=== PATIENT | female | born 1950 | race Caucasian/White ===

== ENCOUNTER 2016-04-25 10:00 | Emergency (ER) | payer SELFPAY ==
[~2016-04-25] VITALS: Wt 68.0 kg
[2016-04-25] MEDS ORDERED: DOCU-144 PO (12:24)
[2016-04-25] MEDS ORDERED: SENN-53 PO (12:24)
--- NOTE | 2016-04-25 13:43 | ERD ---
ER Documentation Chief Complaint Date/Time DATE: 04/25/16 TIME: 13:41 Chief Complaint GEN ABDOMINAL PAIN FOR A FEW DAYS WITH NO NAUSEA NO VOMITING.CONSTIPATION HPI She is a 66-year-old female with diabetes and hypertension who presents with abdominal pain. She says that she usually has a bowel movement 3-4 times per day but over the past 3 days she has had no bowel movements. She said that she has abdominal pain which radiates to her back. She has had no recent changes in her diet and no new medicines. She has no fevers and no vomiting. Upon review of old medical records this is the patient's first visit to the emergency department. She says that she goes to a local clinic but does not know the name of her primary doctor. ROS All systems reviewed and are negative except as per history of present illness. Medications Home Meds Active Scripts Sennosides* (Senna Lax*) 8.6 Mg Tablet, 1 TAB PO DAILY for 30 Days, TAB Prov:LEONARD HIDALGO MD 04/25/16 Docusate Sodium* (Colace*) 100 Mg Capsule, 100 MG PO TID, #30 CAP Prov:LEONARD HIDALGO MD 04/25/16 Allergies Allergies: Coded Allergies: No Known Allergy (Unverified , 04/25/16) PMhx/Soc History of Surgery: No Hx Neurological Disorder: No Hx Respiratory Disorders: No Hx Cardiac Disorders: No Hx Psychiatric Problems: No Hx Miscellaneous Medical Probl: Yes (dm) Hx Alcohol Use: No Hx Substance Use: No Hx Tobacco Use: No Smoking Status: Never smoker FmHx Family History: No diabetes Physical Exam Vitals Vital Signs Date Time Temp Pulse Resp B/P Pulse Ox O2 Delivery O2 Flow Rate FiO2 04/25/16 10:16 98.8 80 21 160/74 98 Physical Exam Const: No acute distress Head: Atraumatic Eyes: Normal Conjunctiva ENT: Normal External Ears, Nose and Mouth. Neck: Full range of motion..~ No meningismus. Resp: Clear to auscultation bilaterally Cardio: Regular rate and rhythm, no murmurs Abd: Soft, non tender, non distended. Normal bowel sounds Skin: No petechiae or rashes Back: No midline or flank tenderness Ext: No cyanosis, or edema Neur: Awake and alert Psych: Normal Mood and Affect Procedures/MDM Patient is a 66-year-old female with constipation. The patient has no abdominal pain on exam. She has a soft nontender abdomen. There is no obvious signs of bowel obstruction. I believe the patient has constipation. I doubt appendicitis, cholecystitis, pancreatitis, or bowel obstruction. The patient will be given a prescription for Colace and senna. She can follow-up with her primary doctor within 24 hours for reevaluation. She can return sooner for any worsening symptoms. At this point I believe the risks of CT scan radiation outweigh the benefits. Departure Diagnosis: Primary Impression: Constipation Constipation type: unspecified constipation type Qualified Code: K59.00 - Constipation, unspecified constipation type Additional Impression: Abdominal pain Abdominal location: unspecified location Qualified Code: R10.9 - Abdominal pain, unspecified location Condition: Fair Patient Instructions: Treating Constipation [facility]: [facility] Bran se العلي hecho un examen mdico de control que le indica que no est en bibi condicin que requiera tratamiento urgente en el Departamento de Emergencia. Un estudio ms profundo y el tratamiento de montes condicin pueden esperar sin ningn riesgo hasta que usted sea atendida/o en el consultorio de montes mdico o bibi cl siena. Es responsabilidad suya arreglar bibi jenny para el seguimiento del anderson. MANEJO DE CONDICIONES NO URGENTES EN EL FUTURO 1) Si usted tiene un mdico de atencin primaria: Usted debera llamar a montes mdico de atencin primaria antes de venir al departamento de emergencia. Despus de las horas de consultorio, montes doctor o montes asociado/a est disponible por telfono. El mdico o enfermero de herman en el servicio telefnico puede asesorarle por yonas medio para atender el problema, o anderson contrario se puede programar bibi jenny. 2) Si usted no tiene un mdico de atencin primaria: Llame al mdico o clnica de referencia que aparece abajo angy las horas de consultorio para hacer biib jenny para que le vean. CLINICAS: [facility] [id number] [facility] [phone] [facility] [phone] [place] [phone] [place] [phone] [place] [phone] Additional Instructions: Llame al doctor MAANA y blossom bibi JENNY PARA DENTRO DE 1-2 KIDD.Dgale a la secretaria que nosotros le instruimos hacer esta jenny.Avise o llame si montes condicin se empeora antes de la jenny. Regresa aqui si peor o no mejor. LEONARD HIDALGO MD Apr 25, 2016 13:42
== END 2016-04-25 13:06 | disposition home or self-care (01) ==
LOC: E/R 10:00
DX: K59.00 Constipation, unspecified (principal); I10 Essential (primary) hypertension; E11.9 Type 2 diabetes mellitus without complications
CPT/HCPCS: 99283